=== PATIENT | male | born 1980 | race Caucasian/White ===

== ENCOUNTER 2016-07-22 09:45 | Emergency (ER) | payer OTHER ==
[2016-07-22 10:06] VITALS: O2SAT 99
[2016-07-22 10:15] VITALS: RESP 16
--- NOTE | 2016-07-22 10:32 | ED PDOC ---
HPI: General Adult Time Seen by Provider: 07/22/16 10:08 Chief Complaint (Nursing): Flu-like Symptoms Chief Complaint (Provider): Fever History Per: Patient Additional Complaint(s): Pt. states for the past 2 days he's had fever associated with cough and bodyaches. Has been taking Comtex (last dose 2330) without relief. Denies sick contacts, recent travel, SOB, hemoptysis, N/V/D, abdominal pain. Past Medical History Reviewed: Historical Data, Nursing Documentation, Vital Signs Vital Signs: Last Vital Signs Temp 100.5 F H 07/22/16 10:44 Pulse 102 H 07/22/16 10:10 Resp 16 07/22/16 10:10 BP 143/61 07/22/16 10:10 Pulse Ox 99 07/22/16 10:34 - Family History Family History: States: No Known Family Hx - Immunization History Hx Tetanus Toxoid Vaccination: No Hx Influenza Vaccination: No Hx Pneumococcal Vaccination: No - Home Medications Home Medications: Ambulatory Orders Medication Instructions Recorded Benzonatate [Tessalon Perle] 100 mg PO Q8 PRN #30 capsule 07/22/16 Naproxen [Naprosyn] 500 mg PO BID PRN #30 tab 07/22/16 Oseltamivir Phosphate [Tamiflu] 75 mg PO BID #10 capsule 07/22/16 - Allergies Allergies/Adverse Reactions: Allergies Allergy/AdvReac Type Severity Reaction Status Date / Time No Known Allergies Allergy Verified 03/05/16 16:01 Review of Systems ROS Statement: Except As Marked, All Systems Reviewed And Found Negative Constitutional: Positive for: Fever Respiratory: Positive for: Cough Physical Exam - Physical Exam Appears: Positive for: Well, Non-toxic, No Acute Distress Skin: Positive for: Normal Color, Warm. Negative for: Rash Eye Exam: Positive for: EOMI, Normal appearance, PERRL ENT: Positive for: Normal ENT Inspection, TM Is/Are (WNL b/l). Negative for: Pharyngeal Erythema, Tonsillar Exudate, Tonsillar Swelling Neck: Positive for: Normal, Painless ROM Cardiovascular/Chest: Positive for: Regular Rate, Rhythm Respiratory: Positive for: Normal Breath Sounds. Negative for: Rales, Rhonchi, Wheezing Gastrointestinal/Abdominal: Positive for: Normal Exam, Soft. Negative for: Tenderness Back: Positive for: Normal Inspection Extremity: Positive for: Normal ROM Neurologic/Psych: Positive for: Alert, Oriented - ECG O2 Sat by Pulse Oximetry: 99 - Progress ED Course And Treament: Tylenol 975mg PO given. Rapid flu test ordered. Rapid flu: +B Disposition - Clinical Impression Clinical Impression: Influenza - Patient ED Disposition Is Patient to be Admitted: No - Disposition Referrals: [facility] [Outside] Disposition: Routine/Home Disposition Time: 11:51 Condition: STABLE Prescriptions: Naproxen [Naprosyn] 500 mg PO BID PRN #30 tab PRN Reason: Pain Oseltamivir Phosphate [Tamiflu] 75 mg PO BID #10 capsule Benzonatate [Tessalon Perle] 100 mg PO Q8 PRN #30 capsule PRN Reason: Cough Instructions: Influenza (ED) Forms: [facility] ED School/Work Excuse
[2016-07-22 12:04] VITALS: BP 116/67; PULSE 96; TEMP 102
== END 2016-07-22 12:35 | disposition home or self-care (01) ==
LOC: H.ER 09:45
DX: J11.1 Influenza due to unidentified influenza virus with other respiratory manifestations (principal); R05 Cough